=== PATIENT | male | born 1940 | race Caucasian/White ===

== ENCOUNTER 2017-07-15 11:51 | Emergency (ER) | payer MEDICARE ==
[~2017-07-15 11:51] MED LIST: ALBU1AER INH; CRES20TA PO; DOXA1 PO; DUONI NEB; FLUT1INH INH; FLUT50SP EACH NARE; GUAI600 PO; KCL20 PO; LORA.5 PO; LORA10 PO; MAPA325T6 PO; NORV10TA PO; PRED20 PO; PROS5TAB2 PO; ROBIACUDC PO; ST JTAB PO; TIOT18I INH; XALA0.00 EACH EYE; Z.0.OXYGENDME NC
[2017-07-15 11:52] VITALS: BP 150/71; PULSE 99; RESP 18; TEMP 98.2; O2SAT 95
[2017-07-15] MEDS ORDERED: SODIUM CHLOR 0.9% 1000 ML INJ 1,000 ML IV SCH (13:15)
[2017-07-15 13:53] LABS: AUTOMATED NEUTROPHIL # 4.6 TH/MM3 (1.8-7.7); BASOPHIL % 0.2 % (0.0-2.0); EOSINOPHIL # 0.2 TH/MM3 (0-0.4); EOSINOPHIL % 2.6 % (0.0-4.0); HEMATOCRIT 46.7 % (39.0-51.0); HEMOGLOBIN 15.8 GM/DL (13.0-17.0); LYMPH % 18.4 % (9.0-44.0); LYMPHOCYTE # 1.3 TH/MM3 (1.0-4.8); MEAN CELL VOLUME 85.8 FL (80.0-100.0); MEAN CORPUSCULAR HGB CONC 33.8 % (32.0-36.0); MEAN PLATELET VOLUME 6.2 FL (7.0-11.0); MONOCYTE # 0.7 TH/MM3 (0-0.9); NEUT % 67.8 % (16.0-70.0); PLATELET COUNT 299 TH/MM3 (150-450); RED BLOOD COUNT 5.44 MIL/MM3 (4.50-5.90); RED CELL DISTRIBUTION WIDTH 14.1 % (11.6-17.2); WHITE BLOOD COUNT 6.8 TH/MM3 (4.0-11.0)
[2017-07-15 14:01] LABS: INTERNATIONAL NORMALIZED RATIO 1.1 RATIO; PROTHROMBIN TIME - PATIENT 10.7 SEC (9.8-11.6)
[2017-07-15 14:14] LABS: ALBUMIN 3.8 GM/DL (3.4-5.0); ALT (GPT) 19 U/L (12-78); AST (GOT) 19 U/L (15-37); BICARBONATE 25.1 MEQ/L (21.0-32.0); BLOOD UREA NITROGEN 8 MG/DL (7-18); CALCIUM 8.6 MG/DL (8.5-10.1); CHLORIDE 103 MEQ/L (98-107); CREATININE 1.16 MG/DL (0.60-1.30); GLOMERULAR FILTRATION RATE 61 ML/MIN (>89); GLUCOSE,RANDOM 92 MG/DL (74-106); LIPASE 79 U/L (73-393); SODIUM (NA) 137 MEQ/L (136-145)
[2017-07-15 14:16] LABS: ALKALINE PHOSPHATASE 95 U/L (45-117); TOTAL BILIRUBIN ADULT 0.7 MG/DL (0.2-1.0); TOTAL PROTEIN 8.9 GM/DL (6.4-8.2)
[2017-07-15] MEDS ORDERED: DIATRIZOATE MEGLUM/DIATRIZOATE SOD 9 ML CUP ONE (15:05)
[2017-07-15] MEDS ORDERED: LATA0.002 EACH EYE (15:20)
[2017-07-15] MEDS ORDERED: AMLO10TA2 PO (15:20)
[2017-07-15] MEDS ORDERED: DOXA1TAB36 PO (15:20)
[2017-07-15] MEDS ORDERED: FINA5TAB2 PO (15:20)
[2017-07-15] MEDS ORDERED: ALBUAER3 (15:20)
[2017-07-15] MEDS ORDERED: FLUT50SP EACH NARE (15:20)
[2017-07-15] MEDS ORDERED: ASPI-516 CHEW (15:20)
[2017-07-15] MEDS ORDERED: SPIRCAP INH (15:20)
[2017-07-15] MEDS ORDERED: FLUT1INH INH (15:20)
[2017-07-15] MEDS ORDERED: ALBU0.63 NEB (15:20)
[2017-07-15] MEDS ORDERED: KLOR20TA3 PO (15:20)
[2017-07-15] MEDS ORDERED: ROSU20 PO (15:20)
[2017-07-15 16:05] VITALS: BP 182/83; PULSE 94; RESP 17; O2SAT 94
[2017-07-15] MEDS ORDERED: IOHEXOL 350 MG/ML 10 ML VIAL (for RAD DIAG) IVCONTRAST ONE (16:24)
--- NOTE | 2017-07-15 17:13 | PD ---
HPI Chief Complaint: GI Complaint Time Seen by Provider: 13:02 Travel History International Travel<30 days: No Contact w/Intl Traveler<30days: No Traveled to known affect area: No History of Present Illness HPI This is a 77-year-old male with history of COPD, hypertension, hyperlipidemia, who presents here with one month history of worsening abdominal pain. The patient states he's had a history of diverticulitis in the past. He reports over the last 2 days, he's noted blood in his stool. He denies a large amount of blood. He states that the toilet tissues tinged with blood when he wipes. He denies any fevers, chills. There is no reported vomiting. He does report nausea. He reports generalized abdominal cramping. There is no shortness of breath. There is no chest pain, chest pressure. He denies any palpitations. The patient has baseline COPD and denies any increased work with breathing. PFSH Past Medical History Hx Anticoagulant Therapy: Yes (ASA) Asthma: Yes Blood Disorders: No Anxiety: No Depression: Yes (NEVER DIAGNOSED, THINKS HE MAY BE DEPRESSED) Heart Rhythm Problems: No Cancer: No Cardiovascular Problems: Yes High Cholesterol: Yes Chest Pain: No Congestive Heart Failure: No COPD: Yes Coronary Artery Disease: No Diabetes: No Diminished Hearing: Yes Endocrine: No Gastrointestinal Disorders: No Genitourinary: Yes (BPH) Hypertension: Yes Immune Disorder: No Musculoskeletal: No Neurologic: Yes (TIA) Psychiatric: Yes Reproductive: No Respiratory: Yes Sleep Apnea: No Influenza Vaccination: Yes Past Surgical History Other Surgery: Yes Social History Alcohol Use: Yes (OCC) Tobacco Use: No Substance Use: No Allergies-Medications (Allergen,Severity, Reaction): Coded Allergies: atorvastatin (Unverified Allergy, Intermediate, 07/15/17) Reported Meds & Prescriptions Reported Meds & Active Scripts Active Flagyl (Metronidazole) 500 Mg Tab 500 Mg PO TID 10 Days Ciprofloxacin (Ciprofloxacin HCl) 500 Mg Tab 500 Mg PO BID 10 Days Reported Albuterol Neb (Albuterol Sulfate) 0.63 Mg/3 Ml Neb 0.63 Mg NEB TID NEB PRN Proair Hfa (Albuterol Sulfate) 90 Mcg Hfa.aer.ad Fluticasone Nasal [place] 50 Mcg/Act Naspr 50 Mcg EACH NARE BID 50 mcg/spray Aspirin 81 Mg Chew 81 Mg CHEW DAILY Latanoprost Opth Drops (Latanoprost) 0.005% Drops 1 Drop EACH EYE HS Refrigerate until opened. Klor-Con M20 (Potassium Chloride Microencaps) 20 Meq Tab 20 Meq PO DAILY Doxazosin (Doxazosin Mesylate) 1 Mg Tab 1 Mg PO DAILY Finasteride 5 Mg Tab 5 Mg PO DAILY Do not crush. Spiriva Handihaler (Tiotropium Inh) 18 Mcg Cap 18 Mcg INH DAILY 1 capsule = 18 mcg Breo Ellipta Inh (Fluticasone/Vilanterol) 100-25 Mcg/Act Inh 1 Puff INH DAILY Use daily at the same time. Crestor (Rosuvastatin Calcium) 20 Mg Tab 20 Mg PO DAILY Amlodipine (Amlodipine Besylate) 10 Mg Tab 10 Mg PO DAILY Review of Systems Except as stated in HPI: all other systems reviewed are Neg General / Constitutional: No: Fever, Chills HENT: No: Headaches, Lightheadedness, Neck Pain Cardiovascular: No: Chest Pain or Discomfort, Palpitations, Irregular Rhythm Respiratory: Positive: Shortness of Breath (chronic, none new), No: Cough Gastrointestinal: Positive: Nausea, Diarrhea, Abdominal Pain (crampy), Other ( blood-tinged toilet tissue), No: Vomiting Genitourinary: No: Dysuria, Decreased Urinary Output Musculoskeletal: No: Myalgias, Weakness, Pain Neurologic: No: Weakness, Dizziness, Headache, Change in Mentation Physical Exam Narrative GENERAL: Well-developed well-nourished male in mild respiratory distress. SKIN: Focused skin assessment warm/dry. HEAD: Atraumatic. Normocephalic. EYES: No scleral icterus. No injection or drainage. ENT: Mucous membranes pink and moist. NECK: Trachea midline. Supple. CARDIOVASCULAR: Regular rate and rhythm. No murmur appreciated. RESPIRATORY: No accessory muscle use. Clear to auscultation. Breath sounds equal bilaterally. GASTROINTESTINAL: Abdomen soft, nondistended. He has subjective crampy in his lower abdominal area. There is no rebound or guarding elicited. RECTAL EXAM: No masses or tenderness, stool is brown. Heme positive. MUSCULOSKELETAL: No obvious deformities. No clubbing. No cyanosis. No edema. NEUROLOGICAL: Awake and alert. No obvious cranial nerve deficits. Motor grossly within normal limits. Normal speech. Data Data Last Documented VS Vital Signs Date Time Temp Pulse Resp B/P (MAP) Pulse Ox O2 Delivery O2 Flow Rate FiO2 07/15/17 16:05 94 17 182/83 (116) 94 Room Air 07/15/17 11:52 98.2 Orders Orders Complete Blood Count With Diff (07/15/17 12:03) Comprehensive Metabolic Panel (07/15/17 12:03) Lipase (07/15/17 12:03) Prothrombin Time / Inr (Pt) (07/15/17 12:03) Act Partial Throm Time (Ptt) (07/15/17 12:03) Ct Abd/Pel W Iv Contrast(Rout) (07/15/17 13:13) Sodium Chlor 0.9% 1000 Ml Inj (Ns 1000 M (07/15/17 13:15) Oral Contrast - Adult (07/15/17 14:41) Diatrizoate Liq ( Gastroview Liq) (07/15/17 15:05) Iohexol 350 Inj (Omnipaque 350 Inj) (07/15/17 16:24) Ciprofloxacin (Cipro) (07/15/17 18:00) Metronidazole (Flagyl) (07/15/17 18:00) Ed Discharge Order (07/15/17 18:50) Labs Laboratory Tests Test 07/15/17 13:30 White Blood Count 6.8 TH/MM3 Red Blood Count 5.44 MIL/MM3 Hemoglobin 15.8 GM/DL Hematocrit 46.7 % Mean Corpuscular Volume 85.8 FL Mean Corpuscular Hemoglobin 29.0 PG Mean Corpuscular Hemoglobin Concent 33.8 % Red Cell Distribution Width 14.1 % Platelet Count 299 TH/MM3 Mean Platelet Volume 6.2 FL Neutrophils (%) (Auto) 67.8 % Lymphocytes (%) (Auto) 18.4 % Monocytes (%) (Auto) 11.0 % Eosinophils (%) (Auto) 2.6 % Basophils (%) (Auto) 0.2 % Neutrophils # (Auto) 4.6 TH/MM3 Lymphocytes # (Auto) 1.3 TH/MM3 Monocytes # (Auto) 0.7 TH/MM3 Eosinophils # (Auto) 0.2 TH/MM3 Basophils # (Auto) 0.0 TH/MM3 CBC Comment DIFF FINAL Differential Comment Prothrombin Time 10.7 SEC Prothromb Time International Ratio 1.1 RATIO Activated Partial Thromboplast Time 26.7 SEC Blood Urea Nitrogen 8 MG/DL Creatinine 1.16 MG/DL Random Glucose 92 MG/DL Total Protein 8.9 GM/DL Albumin 3.8 GM/DL Calcium Level 8.6 MG/DL Alkaline Phosphatase 95 U/L Aspartate Amino Transf (AST/SGOT) 19 U/L Alanine Aminotransferase (ALT/SGPT) 19 U/L Total Bilirubin 0.7 MG/DL Sodium Level 137 MEQ/L Potassium Level 3.7 MEQ/L Chloride Level 103 MEQ/L Carbon Dioxide Level 25.1 MEQ/L Anion Gap 9 MEQ/L Estimat Glomerular Filtration Rate 61 ML/MIN Lipase 79 U/L MDM Medical Decision Making Medical Screen Exam Complete: Yes Emergency Medical Condition: Yes Differential Diagnosis Diverticulitis versus GI bleed versus hemorrhoidal bleed versus colitis Narrative Course 77-year-old male presents today with complaints of abdominal pain and heme in his stool. The patient states when he wipes his bottom he has blood on his tissue. The patient denies any dizziness or shortness of breath other than his chronic short of breath from COPD. The patient's CT scan shows diverticulitis without evidence of abscess. He's been given one dose of Cipro and 1 dose of Flagyl here in emerged from in. He'll be discharged with 10 days further Cipro and Flagyl. I discussed with the patient that he has worsening discomfort, fevers chills, or any other reason the concerns and he can come back to the hospital. He states he'll do so as directed. Diagnosis Primary Impression: Diverticulitis Additional Impressions: CAD (coronary artery disease) history of COPD Additional Instructions: Return if feeling worse, fevers chills, nausea vomiting, or any other reason that concerned you. Take antibiotics as prescribed. Med/Other Pt SpecificInfo: Prescription(s) given Scripts Metronidazole (Flagyl) 500 Mg Tab 500 MG PO TID for Infection for 10 Days, #30 TAB 0 Refills Prov: Gal Carmichael MD 07/15/17 Ciprofloxacin (Ciprofloxacin) 500 Mg Tab 500 MG PO BID for Infection for 10 Days, #20 TAB 0 Refills Prov: Gal Carmichael MD 07/15/17 Disposition: 01 DISCHARGE HOME Condition: Stable Gal Carmichael MD Jul 15, 2017 17:13
--- NOTE | 2017-07-15 17:41 | RADRPT ---
EXAM DATE/TIME: 07/15/2017 16:12 [facility] COMPARISON: No previous studies available for comparison. INDICATIONS : Patient complains of abdominal pain, history of diverticulitis. IV CONTRAST: 80 cc Omnipaque 350 (iohexol) IV ORAL CONTRAST: Prescribed oral contrast ingested. RADIATION DOSE: 6.64 CTDIvol (mGy) MEDICAL HISTORY : Hypertension. Chronic obstructive pulmonary disease. Diverticulitis.cardiac SURGICAL HISTORY : None. ENCOUNTER: Initial ACUITY: 1 month PAIN SCALE: 6/10 LOCATION: abdomen TECHNIQUE: Volumetric scanning of the abdomen and pelvis was performed. Using automated exposure control and ad justment of the mA and/or kV according to patient size, radiation dose was kept as low as reasonably achievable to obtain optimal diagnostic quality images. DICOM format image data is available electro nically for review and comparison. FINDINGS: Trace pleural effusion left lung base minimal pleural thickening. The liver and gallbladder are unremarkable Spleen and pancreas appear normal The right kidney is small and shrunken. Normal size left kidney containing 3.6 cm cyst. Laboratory changes in the sigmoid colon with diverticular disease. This would be consistent with div erticulitis, short segment without abscess Bladder prostate unremarkable CONCLUSION: Short segment diverticulitis sigmoid colon without abscess Trace pleural effusion on the left. Ashish Toth MD FACR on July 15, 2017 at 17:37 Board Certified Radiologist. This report was verified electronically.
[2017-07-15] MEDS ORDERED: CIPR500T2 PO (17:49)
[2017-07-15] MEDS ORDERED: METR-1 PO (17:49)
[2017-07-15] MEDS ORDERED: CIPROFLOXACIN 500 MG TAB PO ONE (18:00)
[2017-07-15] MEDS ORDERED: metroNIDAZOLE 500 MG TAB PO ONE (18:00)
== END 2017-07-15 19:20 | disposition home or self-care (01) ==
LOC: NEPC 11:51
DX: K57.92 Diverticulitis of intestine, part unspecified, without perforation or abscess without bleeding (principal); R06.02 Shortness of breath; I25.10 Atherosclerotic heart disease of native coronary artery without angina pectoris; J44.9 Chronic obstructive pulmonary disease, unspecified; I10 Essential (primary) hypertension; E78.5 Hyperlipidemia, unspecified; E78.00 Pure hypercholesterolemia, unspecified; N40.0 Benign prostatic hyperplasia without lower urinary tract symptoms; Z86.73 Personal history of transient ischemic attack (TIA), and cerebral infarction without residual deficits
CPT/HCPCS: 74177; 80053; 83690; 85025; 85610; 85730; 99285; J7030; Q9963; Q9967